=== PATIENT | female | born 1980 | race American Indian/Alaskan Native ===

== ENCOUNTER 2021-11-22 08:00 | Outpatient (CLI) | payer OTHER | END 2021-11-22 08:30 | disposition home or self-care (01) | LOC: PPH VACUNA 08:00 | PROVIDERS: ATTEND Emergency Medicine Pediatric Emergency Medicine | DX: Z23 Encounter for immunization (principal) ==

== ENCOUNTER 2022-06-22 12:06 | Outpatient (CLI) | payer OTHER | END 2022-06-22 12:11 | disposition home or self-care (01) | LOC: PPH VACUNA 12:06 | PROVIDERS: ATTEND Emergency Medicine Pediatric Emergency Medicine | DX: Z23 Encounter for immunization (principal) ==